=== PATIENT | female | born 1955 | race Caucasian/White ===

== ENCOUNTER → 2019-02-10 | Outpatient (CLI) | payer OTHER ==
--- NOTE | 2019-02-10 15:06 | RADIOLOGY IMAGING REPORT ---
FACILITY: [facility] PATIENT NAME: CONRAD ROJAS : [id number] MR: [id number]: [id number] EXAM DATE: [id number] ORDERING PHYSICIAN: LAURIE SAHU TECHNOLOGIST: Melissa Martin PROCEDURE:BILATERAL DIGITAL SCREENING MAMMOGRAM WITH CAD ASSISTED INTERPRETATION & 3D TOMOSYNTHESIS COMPARISON:Prior mammograms dated 10/23/15 INDICATIONS:screening FINDINGS: The breasts are heterogeneously dense which can obscure small masses. The parenchymal pattern has remained stable when allowing for difference in mammographic technique & patient positioning. DIAGNOSTIC CATEGORY 1--NEGATIVE. RECOMMENDATIONS: ROUTINE MAMMOGRAM AND CLINICAL EVALUATION. IMPRESSION: BIRADS 1: Negative. No significant abnormality is seen. Dictated by: Deandra Escamilla M.D. on 02/10/2019 at 11:25 Transcribed by: SUZIE on 02/10/2019 at 14:28 Approved by: Deandra Escamilla M.D. on 02/10/2019 at 15:05 [facility]
== END ==
LOC: MAMO 09:32
PROVIDERS: ATTEND Nurse Practitioner Family
DX: Z12.31 Encounter for screening mammogram for malignant neoplasm of breast (principal)
CPT/HCPCS: 77063; 77067

== ENCOUNTER 2019-04-08 00:27 | Day surgery (SDC) | payer OTHER ==
[~2019-04-08] VITALS: Ht 165.1 cm; Wt 53.1 kg
[~2019-04-08 00:27] MED LIST: CHOL400C PO; FLUT16SP19 NS; GLUC100026 PO; IBUP1CAP PO; LORA5TAB16 PO; MULT1TAB64 PO
[2019-04-08] MEDS ORDERED: PROPOFOL EMUL(*) 10MG/ML 20 ML 60 ML ONE (07:24)
[2019-04-08] MEDS ORDERED: LIDOCAINE MPF 1% 5 ML VIAL ONE (07:24)
[2019-04-08 07:49] VITALS: BP 111/84
[2019-04-08] MEDS ORDERED: LIDOCAINE/SOD BICARB 8.4% SYR ID ONE (08:00)
[2019-04-08] MEDS ORDERED: NORMOSOL R SOLN(*) 1000 ML BAG 1,000 ML IV PRN (08:00)
[2019-04-08 09:17] VITALS: BP 95/60
--- NOTE | 2019-04-08 09:21 | Short(Outpt) Discharge Summary ---
Discharge Summary Reason for Hosp/Final Diag: (1) Positive fecal occult blood test Hospital Course & Plan: pt presented for colonoscopy. she tolerated the procedure well. she will be discharged home when criteria met. Departure Discharge to: Home Discharge Instructions Home Meds Reported Medications Cholecalciferol (Vitamin D3) (VITAMIN D3) 400 Unit Capsule, 350 UNIT PO DAILY, CAPSULE 04/04/19 Multivitamin (MULTI VITAMIN DAILY) 1 Each Tablet, 1 EACH PO DAILY 04/04/19 Ibuprofen/Pseudoephedrine Hcl (ADVIL COLD-SINUS LIQUI-GELS) 1 Each Capsule, 1 EACH PO, CAPSULE 03/10/19 Loratadine (CLARITIN) 5 Mg Tab.rapdis, 5 MG PO 03/10/19 Fluticasone Prop 50 Mcg Ns (FLONASE 50 MCG NS) 16 Gm [place].susp, 1 SPRAY NS BID, BOT 03/10/19 Discontinued Reported Medications Glucosamine Sulfate 2KCL (GLUCOSAMINE) 1,000 Mg Tablet, 1000 MG PO DAILY 04/04/19 Diet: Regular Activity: As Tolerated Special Instructions: repeat colonoscopy in 10 yrs. BRAD MCINTYRE April 08, 2019 09:21
[2019-04-08 09:30] VITALS: BP 101/65
[2019-04-08 10:00] VITALS: BP 145/75
[2019-04-08 10:16] VITALS: BP 128/94
[2019-04-08 10:17] VITALS: BP 144/83
== END 2019-04-08 10:35 | disposition home or self-care (01) ==
LOC: OR 00:27
PROVIDERS: ATTEND Surgery
DX: K57.30 Diverticulosis of large intestine without perforation or abscess without bleeding (principal)
CPT/HCPCS: 00811; 45378; J2001; J2704